=== PATIENT | female | born 2000 | race Caucasian/White ===

== ENCOUNTER 2023-06-01 22:39 | Emergency (ER) | payer OTHER, SELFPAY ==
[2023-06-01 22:53] VITALS: BP 150/91; PULSE 79; RESP 15; TEMP 36.7; O2SAT 100; BMI 32.5
--- NOTE | 2023-06-01 23:08 | [facility].EDGENADL ---
Discharge Plan Disposition Patient Disposition: Home, Self-Care Referrals Follow up/Referrals: Provider,Referral, [Primary Care Provider] - See instructions Activity Restrictions/Add. Instructions Additional Instructions/Restrictions: You had an entrapped ring in your finger today that was removed with subsequent significant edema to your finger but a normal exam following. You should have complete resolution of your symptoms. Clinical Impressions Clinical Impression: Foreign body finger, Finger swelling Discharge ED Provider: Ulisses Hayes General Adult HPI General Chief complaint: Extremity Problem,Nontraumatic Stated complaint: ring stuck on RT hand Time Seen by Provider: 06/01/23 23:06 Mode of Arrival: Family Vehicle Source of Information: Patient Limitations: No Limitations Description of Symptoms (Recalled from ER Triage Doc. by RN): needs ring removed due to swelling and inability to self remove;no injury, too tight x 24 hrs History of Present Illness HPI narrative: Patient is a 22-year-old female who put a ring onto her right ring finger yesterday that got stuck and has caught significant swelling. She is here to have it removed. [facility] Disclaimer: The information contained in this section may have been updated after the patient was seen, as this information can be updated by other users. Social History Smoking Status: Unknown if ever smoked alcohol intake: never current occupational status: other Travel in the last 8 weeks: None ROS Obtained: Yes All systems reviewed & no additional complaints except as documented Physical Exam General General appearance: alert Respiratory Respiratory exam: Present normal lung sounds bilaterally Cardiovascular Cardiovascular exam: Present regular rate and normal rhythm Extremities Exam Extremities exam: Present other (Patient has an entrapped ring on the base of the proximal phalanx of the right ring finger it is cold there is significant swelling distal to the finger she has otherwise normal capillary refill and motor and sensory function) Neurological Exam Neurological exam: Present alert and oriented X3 Medical Decision Making Dk Inquiry Pt receiving controlled substance: No Vital Signs: 06/01/23 22:53 Temperature 98.0 F Temperature Source Oral Pulse Rate [Right Brachial] 79 Respiratory Rate 15 Blood Pressure [Right Arm] 150/91 H Blood Pressure Mean [Right Arm] 110 Blood Pressure Source [Right Arm] Automatic Cuff Blood Pressure Position [Right Arm] Sitting 02 Sat by Pulse Oximetry 100 Oxygen Delivery Method Room Air Medical Decision Narrative: History and physical as above Ring was successfully removed using Raptor ring cutters wire cutters and a rotary ring cutter. She has a normal neurovascular exam with significant finger swelling once this has been completed. I expect she will have complete resolution of her symptoms. She was discharged in stable condition. Procedures Foreign Body Removal Time Out Performed: No Site: right and hand Description of foreign body: other (Gold ring) Sedation/Analgesia: none Technique: other (Removal with rotary ring cutter wire cutters and Raptor ring cutter) Confirmed by:: direct visualization Complications: none Critical Care Critical Care Time Critical Care Time: No
[2023-06-01 23:16] VITALS: BP 150/91; PULSE 79; RESP 15; TEMP 36.7; O2SAT 100
== END 2023-06-01 23:17 | disposition home or self-care (01) ==
PROVIDERS: Emergency Provider Student in an Organized Health Care Education/Training Program
DX: R22.31 Localized swelling, mass and lump, right upper limb (principal); W49.04XA Ring or other jewelry causing external constriction, initial encounter
CPT/HCPCS: 99282